=== PATIENT | female | born 1970 | race Caucasian/White ===

== ENCOUNTER 2017-06-25 19:30 | Emergency (ER) | payer SELFPAY ==
[~2017-06-25] VITALS: Ht 157.5 cm; Wt 81.6 kg
[2017-06-25 20:53] LABS: BASO # 0.1 x10^3/uL (0.0-0.2); BASO % 1 % (0-3); EOS % 3 % (0-3); HEMATOCRIT 48.5 % (36.0-47.0); HEMOGLOBIN 16.2 g/dL (12.0-15.5); LYMPH # 2.7 x10^3/uL (1.0-4.8); LYMPH % 22 % (24-48); MEAN CORPUSCULAR HEMOGLOBIN 30 pg (25-35); MEAN CORPUSCULAR HGB CONC 33 g/dL (31-37); MEAN CORPUSCULAR VOLUME 88 fL (79-100); MONO % 4 % (0-9); NEUT % 71 % (31-73); PLATELET COUNT 369 x10^3/uL (140-400); RED CELL DISTRIBUTION WIDTH 13.5 % (11.5-14.5); WHITE BLOOD COUNT 12.1 x10^3/uL (4.0-11.0)
[2017-06-25 21:01] LABS: BARBITURATES NEG (NEG); BENZODIAZEPINES NEG (NEG); CANNABINOIDS NEG (NEG); COCAINE NEG (NEG); METHADONE NEG (NEG); OPIATES NEG (NEG); PHENCYCLIDINE NEG (NEG)
[2017-06-25 21:04] LABS: CALCIUM 9.2 mg/dL (8.5-10.1); CREATININE 0.7 mg/dL (0.6-1.0); GFR 90.5; POTASSIUM 3.7 mmol/L (3.5-5.1)
[2017-06-25 21:10] LABS: ALBUMIN 4.4 g/dL (3.4-5.0); TOTAL BILIRUBIN 0.5 mg/dL (0.2-1.0); TOTAL PROTEIN 8.7 g/dL (6.4-8.2)
[2017-06-25] MEDS ORDERED: cloNIDine HCL 0.1 MG TABLET PO ONE (21:30)
[2017-06-25 22:39] VITALS: BP 133/71
--- NOTE | 2017-06-25 23:06 | PHYS DOC ---
Past Medical History Past Medical History: Anxiety, Bipolar, Depression, High Cholesterol, Hypertension, Hypothyroid, Schizophrenia Additional Past Medical Histor: HEARING VOICES FOR PAST YEAR Past Surgical History: Appendectomy, Hysterectomy, Tonsillectomy Additional Past Surgical Histo: LEFT LUMPECTOMY Alcohol Use: Occasionally Additional Information: DRANK 1/2 GLASS WINE APPROX 4 DAYS AGO; DRINKS ONCE EVERY 2-3 MONTHS Drug Use: None Adult General Chief Complaint Chief Complaint: PSYCH EVALUATION HPI HPI Patient is a 47 year old female with history of anxiety, bipolar and schizophrenia who presents to the ED with hallucinations. Patient reports hearing outside voices. Voices are nonthreatening but bizarre nature. Patient denies thoughts of self-harm or harming others. States she is been off medications for several days in attempts to treat her illness actually. Patient currently resides in [place]. She states she started driving yesterday and has been driving the past [address] to [place] to visit her brother. States she arrived early this morning is been driving around the city has not yet made contact with her brother. Patient denies drugs and alcohol. Patient noted be hypertensive on ED arrival, states she's been diagnosed hypertension but is not currently on any medications. [] Review of Systems Review of Systems Review symptoms as per history of present illness. All other review symptoms are negative. [] All other systems were reviewed and found to be within normal limits, except as documented in this note. Current Medications Current Medications Current Medications Medications (Trade) Dose Ordered Sig/Karma Start Time Stop Time Status Last Admin Dose Admin Clonidine HCl (Catapres) 0.2 mg 1X ONCE 06/25/17 21:30 06/25/17 21:31 DC 06/25/17 21:40 0.2 MG Allergies Allergies Allergies Coded Allergies Type Severity Reaction Last Updated Verified Penicillins Allergy Intermediate 06/25/17 Yes Sulfa (Sulfonamide Antibiotics) Allergy Intermediate 06/25/17 Yes Physical Exam Physical Exam Constitutional: Well developed, well nourished, no acute distress, non-toxic appearance. [] HENT: Normocephalic, atraumatic, bilateral external ears normal, oropharynx moist, no oral exudates, nose normal. [] Eyes: PERRLA, EOMI, conjunctiva normal, no discharge. [] Neck: Normal range of motion, no tenderness, supple, no stridor. [] Cardiovascular:Heart rate regular rhythm, no murmur [] Lungs & Thorax: Bilateral breath sounds clear to auscultation [] Abdomen: Bowel sounds normal, soft, no tenderness, no masses, no pulsatile masses. [] Skin: Warm, dry, no erythema, no rash. [] Back: No tenderness, no CVA tenderness. [] Extremities: No tenderness, no cyanosis, no clubbing, ROM intact, no edema. [] Neurologic: Alert and oriented,, no focal deficits noted. [] Psychologic: Affect flat, no HI/SI. No active hallucinations. [] Current Patient Data Vital Signs Vital Signs Date Time Temp Pulse Resp B/P (MAP) Pulse Ox O2 Delivery O2 Flow Rate FiO2 06/25/17 22:39 74 15 133/71 (91) 98 Room Air 06/25/17 19:43 97.6 97.6 Lab Values Laboratory Tests Test 06/25/17 20:45 White Blood Count 12.1 x10^3/uL (4.0-11.0) H Red Blood Count 5.50 x10^6/uL (3.50-5.40) H Hemoglobin 16.2 g/dL (12.0-15.5) H Hematocrit 48.5 % (36.0-47.0) H Mean Corpuscular Volume 88 fL (79-100) Mean Corpuscular Hemoglobin 30 pg (25-35) Mean Corpuscular Hemoglobin Concent 33 g/dL (31-37) Red Cell Distribution Width 13.5 % (11.5-14.5) Platelet Count 369 x10^3/uL (140-400) Neutrophils (%) (Auto) 71 % (31-73) Lymphocytes (%) (Auto) 22 % (24-48) L Monocytes (%) (Auto) 4 % (0-9) Eosinophils (%) (Auto) 3 % (0-3) Basophils (%) (Auto) 1 % (0-3) Neutrophils # (Auto) 8.5 x10^3uL (1.8-7.7) H Lymphocytes # (Auto) 2.7 x10^3/uL (1.0-4.8) Monocytes # (Auto) 0.5 x10^3/uL (0.0-1.1) Eosinophils # (Auto) 0.3 x10^3/uL (0.0-0.7) Basophils # (Auto) 0.1 x10^3/uL (0.0-0.2) Sodium Level 139 mmol/L (136-145) Potassium Level 3.7 mmol/L (3.5-5.1) Chloride Level 99 mmol/L (98-107) Carbon Dioxide Level 34 mmol/L (21-32) H Anion Gap 6 (6-14) Blood Urea Nitrogen 12 mg/dL (7-20) Creatinine 0.7 mg/dL (0.6-1.0) Estimated GFR (Cockcroft-Gault) 90.5 BUN/Creatinine Ratio 17 (6-20) Glucose Level 103 mg/dL (70-99) H Calcium Level 9.2 mg/dL (8.5-10.1) Total Bilirubin 0.5 mg/dL (0.2-1.0) Aspartate Amino Transferase (AST) 19 U/L (15-37) Alanine Aminotransferase (ALT) 30 U/L (14-59) Alkaline Phosphatase 158 U/L (46-116) H Total Protein 8.7 g/dL (6.4-8.2) H Albumin 4.4 g/dL (3.4-5.0) Albumin/Globulin Ratio 1.0 (1.0-1.7) Thyroid Stimulating Hormone (TSH) 3.647 uIU/mL (0.358-3.74) Urine Opiates Screen Neg (NEG) Urine Methadone Screen Neg (NEG) Urine Barbiturates Neg (NEG) Urine Phencyclidine Screen Neg (NEG) Urine Amphetamine/Methamphetamine Neg (NEG) Urine Benzodiazepines Screen Neg (NEG) Urine Cocaine Screen Neg (NEG) Urine Cannabinoids Screen Neg (NEG) Ethyl Alcohol Level < 10 mg/dL (0-10) Urine Ethyl Alcohol Neg (NEG) Laboratory Tests 06/25/17 20:45 Laboratory Tests 06/25/17 20:45 EKG EKG [] Radiology/Procedures Radiology/Procedures [] Course & Med Decision Making Course & Med Decision Making Pertinent Labs and Imaging studies reviewed. (See chart for details) [Blood pressure addressed. Psychiatric assessment team consulted. Recommendations are to continue home medications, go home to brother and follow- up with her PCP or mental health expert.] Dragon Disclaimer Dragon Disclaimer This electronic medical record was generated, in whole or in part, using a voice recognition dictation system. Departure Departure Impression: Primary Impression: Hypertension Additional Impression: Chronic psychosis Disposition: 01 HOME, SELF-CARE Condition: GOOD Patient Instructions: Psychosis, Hypertension, [id number] Additional Instructions: You were evaluated in the ED for evaluation in the ED for hallucinations. Labwork was performed and was non-diagnostic. Your blood pressure was treated. Please fill blood pressure medication prescription tomorrow and take as directed. Continue home psychiatric medications. Follow up with your PCP and mental health expert. Return to the ED if new or worsening symptoms. Problem Qualifiers HERIBERTO GRESHAM DO Jun 25, 2017 23:06
--- NOTE | 2017-06-26 06:20 | EKG ---
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
== END 2017-06-25 23:00 | disposition home or self-care (01) ==
LOC: ER 19:30
DX: F28 Other psychotic disorder not due to a substance or known physiological condition (principal); I10 Essential (primary) hypertension; E03.9 Hypothyroidism, unspecified; E78.00 Pure hypercholesterolemia, unspecified; F20.9 Schizophrenia, unspecified; F41.9 Anxiety disorder, unspecified; F31.9 Bipolar disorder, unspecified; F10.20 Alcohol dependence, uncomplicated; Z88.0 Allergy status to penicillin; Z88.2 Allergy status to sulfonamides
CPT/HCPCS: 36415; 80053; 80307; 84443; 85025; 93005; 99285; G0480; G0479